=== PATIENT | female | born 1975 | race Caucasian/White ===

== ENCOUNTER 2019-09-20 17:42 | Emergency (ER) | payer OTHER ==
[2019-09-20 17:54] VITALS: TEMP 98.2; BMI 36.0
--- NOTE | 2019-09-20 18:18 | PDOC ---
History of Present Illness - General Chief Complaint: Chest Pain Stated Complaint: CHEST PAIN Time Seen by Provider: 09/20/19 18:01 - History of Present Illness Initial Comments: 09/20/19 18:13 43 yo F PMH C-sections X2, most recently 6 years ago (had pre-eclampsia with first ), tubal ligation, presents with chest pain. Reports that it began around 1300 today, "tightness", sternal, non-radiating, 7/10, worse with sitting up and improved lying down, associated with intermittent mild SOB but without nausea or vomiting. Pain is worsened with movement. Denies recent travel, cough, fevers/chills. Past History - Past Medical History Allergies/Adverse Reactions: Allergies Allergy/AdvReac Type Severity Reaction Status Date / Time No Known Allergies Allergy Verified 09/20/19 18:20 Home Medications: Ambulatory Orders NK [No Known Home Medication] 09/20/19 Anemia: No Asthma: No Cancer: No Cardiac Disorders: No Diabetes: No HTN: No Seizures: No Thyroid Disease: No - Surgical History Abdominal Surgery: No Appendectomy: No Cardiac Surgery: No - Reproductive History (#): 3 Para: 2 Therapeutic (s) & number: Yes (1) - Immunization History Immunization Up to Date: Yes - Psycho Social/Smoking Cessation Hx Smoking Status: No Smoking History: Never smoked Number of Cigarettes Smoked Daily: 0 Information on smoking cessation initiated: No Hx Alcohol Use: No Drug/Substance Use Hx: No Hx Substance Use Treatment: No Review of Systems - Review of Systems Comments:: 09/20/19 18:16 GENERAL/CONSTITUTIONAL: denies fever, chills, diaphoresis, generalized weakness , malaise, loss of appetite, weight change HEAD, EYES, EARS, NOSE AND THROAT: denies rhinorrhea, nasal congestion, throat pain, throat swelling, difficulty swallowing, mouth swelling, ear pain, eye pain , visual changes NEUROLOGIC: denies headache, focal weakness or paresthesias, dizziness, unsteady gait, seizure, mental status changes, bladder or bowel incontinence CARDIOVASCULAR: endorses sternal chest pain with chest tightness. Denies syncope , palpitations, irregular heart rate, lightheadedness, peripheral edema RESPIRATORY: endorses intermittent mild SOB. Denies cough, dyspnea with exertion , orthopnea, wheezing, stridor, hemoptysis GASTROINTESTINAL: denies abdominal pain, abdominal distension, nausea, vomiting , diarrhea, constipation, melena, hematochezia GENITOURINARY: denies dysuria, frequency, urgency, hesitancy, hematuria, flank pain, genital pain MUSCULOSKELETAL: denies myalgia, arthralgia, joint swelling, back pain, neck pain SKIN: denies rash, itching, pallor HEMATOLOGIC/IMMUNOLOGIC: denies easy bleeding, easy bruising, lymphadenopathy, frequent infections ENDOCRINE: denies unexplained weight gain, unexplained weight loss, heat intolerance, cold intolerance PSYCHIATRIC: endorses anxiety. Denies depression, suicidal or homicidal ideation , hallucinations *Physical Exam - Vital Signs Last Vital Signs Temp Pulse Resp BP Pulse Ox 98.2 F 81 18 165/99 100 09/20/19 17:51 09/20/19 17:51 09/20/19 17:51 09/20/19 17:51 09/20/19 17:51 - Physical Exam 09/20/19 18:17 Gen: well-developed, well-nourished, appears anxious Neuro: AAOX4, CN II-XII intact, FTN intact, EOMI, PERRLA, 5/5 strength, SILT HEENT: atraumatic, normocephalic Neck: trachea midline, supple CV: regular rate, regular rhythm, no murmurs, rubs, or gallops Pulm: CTA b/l, no wheezing Abd: soft, non-distended, non-tender MSK: full ROM, intact pulses Extr: no edema, no deformities Skin: warm, dry ED Treatment Course - LABORATORY CBC & Chemistry Diagram: 09/20/19 18:40 09/20/19 18:40 Medical Decision Making - Medical Decision Making 09/20/19 18:17 Likely musculoskeletal, but have to r/o ACS. Can PERC patient and rule out PE. - CBC, CMP - EKG, trop - CXR 09/20/19 18:47 CXR without acute pathology. 09/20/19 19:46 Labs unremarkable. 09/20/19 20:01 Patient feeling better. Will dc. Discharge - Discharge Information Problems reviewed: Yes Clinical Impression/Diagnosis: Chest pain Condition: Improved Disposition: HOME - Admission No - Follow up/Referral Referrals: Adeline Wilson MD [Primary Care Provider] - - Patient Discharge Instructions Patient Printed Discharge Instructions: DI for Atypical Chest Pain Additional Instructions: You were seen with chest pain. Your labs, EKG, and chest X-ray did not have any concerning findings, and your symptoms improved with pain medication. This is likely musculoskeletal pain. Please take acetaminophen or ibuprofen as needed for pain. Follow up with your primary care doctor within one week. Return to the ED if you develop worsening symptoms. - Post Discharge Activity
[2019-09-20] MEDS ORDERED: ACETAMINOPHEN 1000 MG/100 ML VIAL (NON FORMULARY) IVPB ONE (18:21)
--- NOTE | 2019-09-20 18:26 | PDOC ---
Attending Attestation - Resident Resident Name: Johnson Steel - ED Attending Attestation I have performed the following: I have examined & evaluated the patient, The case was reviewed & discussed with the resident, I agree w/resident's findings & plan, Exceptions are as noted - HPI HPI: 09/20/19 18:21 43y F no significant pmhx presents with a complaint of right-sided chest pain. Patient states that the pain was gradual onset approximately 1 PM, has gradually gotten worse over the last several hours she describes it as pressure- like in nature and does seem to be worsened with movement of her right arm. She denies any cough, hemoptysis, shortness of breath, nausea, vomiting, diaphoresis. She denies it being exertional in nature. She has not taken any medications for this. She denies any exogenous steroid/ocp use. There is been no leg swelling, calf pain or tenderness. No prior history of DVTs or PEs. There is no family history of cardiac disease. There is no radiation of the pain and there is no associated numbness, tingling, weakness in upper or lower or lower extremities. Physicial Exam GENERAL: The patient is awake, alert, and fully oriented, Nontoxic - in no acute distress. HEAD: Normocephalic, atraumatic. EYES: extraocular movements intact, sclera anicteric, conjunctiva clear. ENT: Normal voice, Moist mucous membranes. NECK: Normal range of motion, supple LUNGS: Breath sounds equal, clear to auscultation bilaterally. No wheezes, no rhonchi, no rales. HEART: Regular rate and rhythm, normal S1 and S2 without murmur, rub or gallop. CHEST: Mild reproducible tenderness on the right chest, worse with abduction of her R shoulder against resisstance with elbow flexed ABDOMEN: Soft, nontender, No guarding, no rebound. No CVA tenderness EXTREMITIES: Normal range of motion, no edema. NEUROLOGICAL: No facial assymetry, Normal speech, PSYCH: Normal mood, normal affect. SKIN: Warm, Dry, normal turgor, Differential for the patient's symptoms includes but not limited to acute coronary syndrome, possible enteritis, muscular strain. Consider possible PE however patient lacks associated symptoms such as shortness of breath, dyspnea exertion cough, PERC negative. The patient's blood pressure was noted to be elevated at triage however on repeat it is currently normal at 138/80. We will give the patient Tylenol for pain will obtain screening blood work, chest x-ray, EKG - Physicial Exam PE: 09/21/19 10:24 see above - Medical Decision Making case signed out to dr. conley and evening team to gordy Heart Score/ECG Review - ECG Impressions Comment:: 09/20/19 18:25 Twelve-lead EKG was performed and reviewed by me. There is normal sinus rhythm with a normal rate. Rate of 89 Incomplete right bundle branch block T wave inversion in V1 to V3
[2019-09-20] MEDS ORDERED: ACETAMINOPHEN INJECTION 100 ML IVPB ONE (18:29)
[2019-09-20 19:12] LABS: BASO % 0.7 % (0-2.0); EOS % 1.5 % (0-4.5); HEMATOCRIT 35.4 % (32.4-45.2); HEMOGLOBIN 11.9 GM/dL (10.7-15.3); LYMPH % 32.3 % (8-40); MCH 30.2 pg (25.7-33.7); MCHC 33.7 g/dl (32.0-36.0); MEAN CELL VOLUME 89.4 fl (80-96); MEAN PLT VOLUME 8.4 fl (7.5-11.1); NEUT % 58.5 % (42.8-82.8); PLATELET COUNT 278 K/MM3 (134-434); RBC 3.96 M/mm3 (3.60-5.2); RDW 13.6 % (11.6-15.6)
[2019-09-20 19:38] LABS: ALBUMIN 3.9 g/dl (3.4-5.0); BILIRUBIN,TOTAL 0.2 mg/dL (0.2-1); BLOOD UREA NITROGEN 9.9 mg/dL (7-18); CREATININE 0.9 mg/dL (0.55-1.3); TOT PROT 6.8 g/dl (6.4-8.2)
--- NOTE | 2019-09-20 20:11 | PDOC ---
*Physical Exam - Vital Signs Last Vital Signs Temp Pulse Resp BP Pulse Ox 98.2 F 81 18 165/99 100 09/20/19 17:51 09/20/19 17:51 09/20/19 17:51 09/20/19 17:51 09/20/19 17:51 ED Treatment Course - LABORATORY CBC & Chemistry Diagram: 09/20/19 18:40 09/20/19 18:40 - ADDITIONAL ORDERS Additional order review: Laboratory Results 09/20/19 09/20/19 09/20/19 18:40 18:40 18:40 WBC 8.0 RBC 3.96 Hgb 11.9 Hct 35.4 MCV 89.4 MCH 30.2 MCHC 33.7 RDW 13.6 Plt Count 278 MPV 8.4 Absolute Neuts (auto) 4.7 Neutrophils % 58.5 Lymphocytes % 32.3 Monocytes % 7.0 Eosinophils % 1.5 Basophils % 0.7 Nucleated RBC % 0 Sodium 138 Potassium 4.0 Chloride 103 Carbon Dioxide 29 Anion Gap 6 L BUN 9.9 Creatinine 0.9 Est GFR (CKD-EPI)AfAm 92.05 Est GFR (CKD-EPI)NonAf 79.42 Random Glucose 94 Calcium 9.0 Total Bilirubin 0.2 AST 18 ALT 21 Alkaline Phosphatase 58 Creatine Kinase 138 Troponin I < 0.02 Total Protein 6.8 Albumin 3.9 09/20/19 18:40 RBC 3.96 MCV 89.4 MCHC 33.7 RDW 13.6 MPV 8.4 Neutrophils % 58.5 Lymphocytes % 32.3 Monocytes % 7.0 Eosinophils % 1.5 Basophils % 0.7 - Medications Given in the ED: ED Medications Discontinued Medications Generic Name Dose Route Start Last Admin Trade Name Junior PRN Reason Stop Dose Admin Acetaminophen 1,000 mg 09/20/19 18:21 09/20/19 18:50 Ofirmev Injection - IVPB 09/20/19 18:22 1,000 mg ONCE ONE Administration Medical Decision Making - Medical Decision Making 09/20/19 20:08 Pt signed out to me Pt is here with a constant CP that has been sitting on her right mid-sternum, radiating to the right breast. She has no SOB associated with it; not assoc with meals and no radiation of the pain. She has not lifted anything. Pt is overweight, but she has no HTN and no DM and no asthma. She states that after her 1st c section she had HTN, but she is on no meds now for it. She has had 2 c sections. She has no PMHX and she has no other PSHx. She concedes that she has Pasha cholesterol. We discussed the importance of eating more fruits and veggies. 09/21/19 06:26 Discharge - Discharge Information Problems reviewed: Yes Clinical Impression/Diagnosis: Chest pain Condition: Improved Disposition: HOME - Follow up/Referral Referrals: Adeline Wilson MD [Primary Care Provider] - - Patient Discharge Instructions Patient Printed Discharge Instructions: DI for Atypical Chest Pain Additional Instructions: You were seen with chest pain. Your labs, EKG, and chest X-ray did not have any concerning findings, and your symptoms improved with pain medication. This is likely musculoskeletal pain. Please take acetaminophen or ibuprofen as needed for pain. Follow up with your primary care doctor within one week. Return to the ED if you develop worsening symptoms. - Post Discharge Activity
[2019-09-20 20:29] VITALS: BP 111/77; PULSE 78
--- NOTE | 2019-09-22 09:51 | EKG ---
Test Reason : Blood Pressure : / mmHG Vent. Rate : 079 BPM Atrial Rate : 079 BPM P-R Int : 152 ms QRS Dur : 094 ms QT Int : 372 ms P-R-T Axes : 063 005 037 degrees QTc Int : 426 ms NORMAL SINUS RHYTHM POSSIBLE LEFT ATRIAL ENLARGEMENT RSR' OR QR PATTERN IN V1 SUGGESTS RIGHT VENTRICULAR CONDUCTION DELAY BORDERLINE ECG NO PREVIOUS ECGS AVAILABLE Confirmed by Bennett Nelson ([id number]) on 09/22/2019 9:51:21 AM Referred By: Confirmed By:Bennett Nelson
== END 2019-09-20 20:30 | disposition home or self-care (01) ==
LOC: JER 17:42
PROC: 3E033NZ Introduction of Analgesics, Hypnotics, Sedatives into Peripheral Vein, Percutaneous Approach (ICD-10-PCS; principal; 2019-09-20)
DX: R07.9 Chest pain, unspecified (principal); E78.00 Pure hypercholesterolemia, unspecified; E66.9 Obesity, unspecified; Z68.36 Body mass index [BMI] 36.0-36.9, adult
CPT/HCPCS: 36415; 71045-TC-FY; 80053; 82550; 84484; 85025; 93005; 93010; 96374; 99285-25; J0131

== ENCOUNTER 2022-01-22 15:36 | Emergency (ER) | payer OTHER ==
[2022-01-22 15:48] VITALS: BP 107/67; PULSE 90; TEMP 97.8; BMI 36.8
[2022-01-22] MEDS ORDERED: KETOROLAC TROMETHAMINE 30 MG/1 ML VIAL IM ONE (16:43)
[2022-01-22] MEDS ORDERED: KETOROLAC TROMETHAMINE 30 MG/1 ML VIAL ONE (16:58)
== END 2022-01-22 17:51 | disposition home or self-care (01) ==
LOC: JER 15:36 → JERFT 15:36
PROC: 3E0233Z Introduction of Anti-inflammatory into Muscle, Percutaneous Approach (ICD-10-PCS; principal; 2022-01-22)
DX: M54.50 Low back pain, unspecified (principal); G89.29 Other chronic pain
CPT/HCPCS: 71046-TC-FY; 72100-TC-FY; 99284-25

== ENCOUNTER 2022-04-20 17:39 | Emergency (ER) | payer OTHER ==
[2022-04-20 17:52] VITALS: BP 131/82; PULSE 96; RESP 18; TEMP 97; BMI 37.8
[2022-04-20] MEDS ORDERED: SODIUM CHLORIDE 1,000 ML IV STA (19:41)
[2022-04-20 22:24] LABS: BASO % 0.4 % (0-2.0); EOS % 0.9 % (0-4.5); HEMATOCRIT 36.6 % (32.4-45.2); HEMOGLOBIN 12.5 GM/dL (10.7-15.3); LYMPH % 28.5 % (8-40); MCH 29.9 pg (25.7-33.7); MCHC 34.2 g/dl (32.0-36.0); MEAN CELL VOLUME 87.6 fl (80-96); MEAN PLT VOLUME 7.9 fl (7.5-11.1); MONO % 9.1 % (3.8-10.2); NEUT % 61.1 % (42.8-82.8); PLATELET COUNT 280 10^3/uL (134-434); RBC 4.17 M/mm3 (3.60-5.2); RDW 13.7 % (11.6-15.6)
[2022-04-20 22:35] LABS: INR 1.17 (0.83-1.09); PROTHROMBIN TIME (PATIENT) 13.5 SEC (9.7-13.0)
[2022-04-20 22:37] LABS: ACTIVATED PTT 28.4 SECONDS (25.2-36.5)
[2022-04-20 22:47] LABS: ALBUMIN 3.9 g/dl (3.4-5.0); BLOOD UREA NITROGEN 9.6 mg/dL (7-18)
[2022-04-20 22:50] LABS: CREATININE 0.7 mg/dL (0.55-1.3)
[2022-04-20 22:51] LABS: BILIRUBIN,TOTAL 0.6 mg/dL (0.2-1)
[2022-04-20 22:53] LABS: TOT PROT 7.5 g/dl (6.4-8.2)
== END 2022-04-20 23:49 | disposition left against medical advice (07) ==
LOC: JER 17:39
PROC: 3E0337Z Introduction of Electrolytic and Water Balance Substance into Peripheral Vein, Percutaneous Approach (ICD-10-PCS; principal; 2022-04-20)
DX: R00.2 Palpitations (principal); R07.89 Other chest pain; R06.02 Shortness of breath
CPT/HCPCS: 0241U-QW; 36415; 71046-TC-FY; 80053; 84443; 84484; 84703; 85025; 85610; 85730; 93005; 93010; 99284-25